=== PATIENT | male | born 1955 ===

== ENCOUNTER 2017-06-07 09:21 | Inpatient (IN) ==
[2017-06-07] MEDS ORDERED: 0.9 % Sodium Chloride 1,000 ML IVC ONE (09:37)
[2017-06-07 09:42] LABS: Bilirubin,Urine Negative (Negative); Blood,Urine Negative (Negative); Clarity,Urine Clear (Clear); Color,Urine Yellow (Yellow); Glucose,Urine (UA) Normal (Normal); Ketones,Urine Negative (Negative); Leukocyte Esterase,Urine Negative (Negative); Nitrite,Urine Negative (Negative); PH,Urine 6.5 pH Units (5.0-8.0); Protein,Urine Negative (Neg-Trace); Specific Gravity,Urine < 1.005 (1.010-1.025); Urobilinogen,Urine Normal (Normal)
[2017-06-07 10:13] LABS: Basophils % 0.7 %; Eosinophils # 0.2 K/mcL (0.0-0.6); Eosinophils % 2.7 %; Hematocrit 30.8 % (37.5-50.1); Hemoglobin 10.2 g/dL (12.9-16.9); Immature Granulocytes % 0.4 % (0-4); Lymphocytes # 1.2 K/mcL (0.6-4.6); Lymphocytes % 21.1 %; Mean Corpuscular HGB Conc 33.1 g/dL (31.6-35.5); Mean Corpuscular Hemoglobin 31.5 pg (28.0-33.3); Mean Corpuscular Volume 95.1 fL (83.0-100.0); Mean Platelet Volume 11.7 fL (9.4-12.4); Monocytes # 0.3 K/mcL (0.0-1.3); Monocytes % 5.1 %; Platelet Count 173 K/mcL (140-400); Red Blood Count 3.24 M/mcL (4.19-5.50); Red Cell Distribution Width 11.8 % (11.5-14.5)
[2017-06-07 10:29] LABS: Calcium 8.9 mg/dL (8.6-10.3); Potassium 4.2 mEq/L (3.5-5.1)
--- NOTE | 2017-06-07 10:50 | Emergency Department Note ---
START Narrative - START START: I examined this patient and my medical decision-making was reviewed with the emergency medicine resident. I agree with the documented findings, disposition and treatment plan as described except to the extent set forth below. Patient seen with emergency medicine resident Dr. Marty Mckeon, Please see a copy of his note for details of the H&P, ED evaluation, management and disposition. I have independently evaluated the patient and confirmed appropriate portions of the history and physical exam. Briefly: 61-year-old male sent in fall of his adeno presents to clinic provider for elevated creatinine 3+. Patient also was hypertensive systolic greater than 220 neurologically nonfocal his acute urinary retention secondary to prostatic hypertrophy. He was placed with 1100 and OF urine obtained peripheral clamping. Patient will get repeat labs EKG urologic consultation and admission. Disposition pending
--- NOTE | 2017-06-07 11:24 | Emergency Department Note ---
Disposition Clinical Impression: Urinary retention Acute renal failure Qualifiers: Acute renal failure type: unspecified Qualified Code(s): N17.9 - Acute kidney failure, unspecified Hydronephrosis Qualifiers: Hydronephrosis type: unspecified Qualified Code(s): N13.30 - Unspecified hydronephrosis Disposition: Admitted As Inpatient Condition: Fair General Adult HPI - General Chief complaint: ED Recheck/Abnormal Lab/Rx Stated complaint: Renal Failure Time Seen by Provider: 06/07/17 09:36 Source: patient Limitations: no limitations Nursing Notes Reviewed: Yes Vital Signs Reviewed: Yes - History of Present Illness HPI Narrative: Patient presents from the residency clinic for evaluation of acute renal failure. Creatinine of 3.0. The patient states history of prostate problems. He did see Dr. Rincon who was concerned about possible urinary retention and ordered a outpatient CT scan. The patient on arrival does have a distended lower abdomen and bedside ultrasound shows a distended bladder that is not able to be fully visualize due to its total distention. Ultrasound of the kidneys show that he has severe hydronephrosis. A Pisano will be placed and basic blood work will be drawn. Patient has not had any other symptoms other than what he describes as difficulty with urination and increased intermittent amounts. Patient states feels like he can incompletely emptying his bladder. No dysuria. No fevers or chills or chest pain or shortness of breath or abdominal pain. Pain Scale: 0 - Related Data Home Medications Medication Instructions Recorded Confirmed Aspirin 325 mg PO DAILY 06/07/17 06/07/17 Chromium Picolinate 1,000 mcg PO DAILY 06/07/17 06/07/17 Fish Oil/Dha/Epa [Fish Oil 1,200 1 cap PO DAILY 06/07/17 06/07/17 mg Fish Oil] Garlic 2,000 mg PO DAILY 06/07/17 06/07/17 Tamsulosin [Flomax] 0.4 mg PO DAILY 06/07/17 06/07/17 Terbinafine HCl [Lamisil] 250 mg PO DAILY 06/07/17 06/07/17 amLODIPine [Norvasc] 5 mg PO DAILY 06/07/17 06/07/17 Allergies Allergy/AdvReac Type Severity Reaction Status Date / Time No Known Allergies Allergy Verified 06/07/17 09:34 Review of Systems: CONSTITUTIONAL: No weight loss, fever, chills, weakness or fatigue. HEENT: Eyes: No visual changes. Ears, Nose, Throat: No hearing loss, difficulty talking or unable to swallow. SKIN: No rash or itching. CARDIOVASCULAR: No chest pain, chest pressure or chest discomfort. No palpitations or edema. RESPIRATORY: No shortness of breath, cough or sputum. GASTROINTESTINAL: Abdominal distention No anorexia, nausea, vomiting or diarrhea. No abdominal pain or blood. GENITOURINARY: Decreased urination NEUROLOGICAL: No headache, dizziness, syncope, paralysis, ataxia, numbness or tingling in the extremities. No change in bowel or bladder control. MUSCULOSKELETAL: No muscle pain, back pain, joint pain or stiffness. Past Medical History - Past Medical History Medical history: Reports: other - Social History Smoking Status: Never smoker Smokeless Tobacco Status: No Alcohol use: Reports: none Drug use: Reports: none Physical Exam General: Well appearing, nontoxic, no acute distress Head: Normocephalic Atraumatic Eyes: PERRL, EOMI ENT: Airway patent, no stridor Neck: supple, no meningismus Chest: Lungs clear to auscultation bilateral Cardiac: Regular rate and rhythm, no murmurs, rubs or gallops Abdomen: soft, nontender, mild lower abdominal distention; no guarding, rebound , or tenderness to percussion Musculoskeletal: Calves symmetric, nontender, no palpable cord Skin: No rash, normal skin tone Neuro: Alert and Oriented to person, place, and time; No focal deficit, CN 2-12 symmetric and intact Bedside ultrasound with significantly distended bladder as well as severe hydronephrosis - General Limitations: no limitations General appearance: alert, in no apparent distress Course - Reevaluation(s) Reevaluation #1: 4 L of urine have been obtained. Patient has had elevated creatinine in the setting of acute urinary retention. Patient fully has been placed. Patient will need admitted for further evaluation. - Consultations Consultation #1: Discussed with urology, Dr. Almonte. He will be happy to consult on the patient. Leave the Pisano in place. No other recommendations at this time. Consultation #2: Discussed with Dr. Mora. Concern for high blood pressure causing underlying kidney disease as well. Requests 20 mg of hydralazine. At this time will start with 10 mg of hydralazine and re-dose depending on response. Vital Signs Temperature 98.3 F 06/07/17 09:30 Pulse Rate 76 06/07/17 09:30 Respiratory Rate 16 06/07/17 09:30 Blood Pressure 221/122 06/07/17 09:30 O2 Sat by Pulse Oximetry 99 06/07/17 09:30 Temperature 97.9 F 06/07/17 15:49 Pulse Rate 85 06/07/17 15:49 Respiratory Rate 14 06/07/17 15:49 Blood Pressure 155/73 06/07/17 15:49 O2 Sat by Pulse Oximetry 98 06/07/17 15:49 Oxygen Delivery Oxygen Delivery Room Air Medical Decision Making - Lab Data Result diagrams: 06/07/17 09:58 06/07/17 09:58 Lab Results 06/07/17 06/07/17 06/07/17 Range/Units 09:29 09:38 09:58 WBC 5.6 (4.3-11.1) K/mcL RBC 3.24 L (4.19-5.50) M/mcL Hgb 10.2 L (12.9-16.9) g/dL Hct 30.8 L (37.5-50.1) % MCV 95.1 (83.0-100.0) fL MCH 31.5 (28.0-33.3) pg MCHC 33.1 (31.6-35.5) g/dL RDW 11.8 (11.5-14.5) % Plt Count 173 (140-400) K/mcL MPV 11.7 (9.4-12.4) fL Immature Gran % 0.4 (0-4) % Seg Neutrophils % 70.0 % Lymphocytes % 21.1 % Monocytes % 5.1 % Eosinophils % 2.7 % Basophils % 0.7 % Neutrophils # 4.0 (1.6-8.9) K/mcL Lymphocytes # 1.2 (0.6-4.6) K/mcL Monocytes # 0.3 (0.0-1.3) K/mcL Eosinophils # 0.2 (0.0-0.6) K/mcL Basophils # 0.0 (0.0-0.2) K/mcL Sodium (136-145) mEq/L Potassium (3.5-5.1) mEq/L Chloride (98-107) mEq/L Carbon Dioxide (23-29) mEq/L BUN (8-23) mg/dL Creatinine (0.70-1.30) mg/dL Est GFR ( Amer) (> 60) Est GFR (Non-Af Amer) (> 60) BUN/Creatinine Ratio (6-26) Glucose (70-105) mg/dL Calculated Osmolality (280-300) Uric Acid 5.5 (2.3-7.6) mg/dL Calcium (8.6-10.3) mg/dL Phosphorus 3.9 (2.7-4.5) mg/dL Urine Color Yellow (Yellow) Urine Clarity Clear (Clear) Urine pH 6.5 (5.0-8.0) pH Units Ur Specific [place] < 1.005 L (1.010-1.025) Urine Protein Negative (Neg-Trace) mg/dL Urine Glucose (UA) Normal (Normal) mg/dL Urine Ketones Negative (Negative) mg/dL Urine Blood Negative (Negative) Urine Nitrite Negative (Negative) Urine Bilirubin Negative (Negative) Urine Urobilinogen Normal (Normal) mg/dL Ur Leukocyte Esterase Negative (Negative) Ur Culture Indicated? NO (NO) 06/07/17 Range/Units 09:58 WBC (4.3-11.1) K/mcL RBC (4.19-5.50) M/mcL Hgb (12.9-16.9) g/dL Hct (37.5-50.1) % MCV (83.0-100.0) fL MCH (28.0-33.3) pg MCHC (31.6-35.5) g/dL RDW (11.5-14.5) % Plt Count (140-400) K/mcL MPV (9.4-12.4) fL Immature Gran % (0-4) % Seg Neutrophils % % Lymphocytes % % Monocytes % % Eosinophils % % Basophils % % Neutrophils # (1.6-8.9) K/mcL Lymphocytes # (0.6-4.6) K/mcL Monocytes # (0.0-1.3) K/mcL Eosinophils # (0.0-0.6) K/mcL Basophils # (0.0-0.2) K/mcL Sodium 142 (136-145) mEq/L Potassium 4.2 (3.5-5.1) mEq/L Chloride 109 H (98-107) mEq/L Carbon Dioxide 27 (23-29) mEq/L BUN 38 H (8-23) mg/dL Creatinine 3.04 H (0.70-1.30) mg/dL Est GFR ( Amer) 26 L (> 60) Est GFR (Non-Af Amer) 21 L (> 60) BUN/Creatinine Ratio 13 (6-26) Glucose 97 (70-105) mg/dL Calculated Osmolality 303 H (280-300) Uric Acid (2.3-7.6) mg/dL Calcium 8.9 (8.6-10.3) mg/dL Phosphorus (2.7-4.5) mg/dL Urine Color (Yellow) Urine Clarity (Clear) Urine pH (5.0-8.0) pH Units Ur Specific [place] (1.010-1.025) Urine Protein (Neg-Trace) mg/dL Urine Glucose (UA) (Normal) mg/dL Urine Ketones (Negative) mg/dL Urine Blood (Negative) Urine Nitrite (Negative) Urine Bilirubin (Negative) Urine Urobilinogen (Normal) mg/dL Ur Leukocyte Esterase (Negative) Ur Culture Indicated? (NO)
[2017-06-07] MEDS ORDERED: Naloxone 0.4 MG/ML INJ IVP PRN (11:40)
[2017-06-07] MEDS ORDERED: *HR* HYDROcodone/Acet 5/325 mg TABLET PO PRN (11:40)
[2017-06-07] MEDS ORDERED: Acetaminophen 325 MG TABLET PO PRN (11:40)
[2017-06-07] MEDS ORDERED: amLODIPine 5 MG TABLET PO ONE (11:42)
--- NOTE | 2017-06-07 11:47 | Internal Med History&Physical ---
Date of Encounter: 06/07/17 Time of Encounter: 12:50 Assessment and Plan (1) Hypertensive urgency Current visit: Yes Status: Acute Patient with known hypertension continue medications. Patient states he was just started on Norvasc by his primary care physician yesterday. He has a hypertensive medication. Give 1 dose of IV hydralazine and start the patient on Norvasc 10 mg by mouth daily. (2) GISSELLE (acute kidney injury) Current visit: Yes Status: Acute Suspected acute on chronic kidney injury. Patient has a history of uncontrolled hypertension and may have chronic kidney disease at baseline. Baseline is unknown due to no records here. However, uric acid is normal, phosphate is normal. Patient does have anemia which may be anemia of chronic disease. Obtain urine sodium, obtain renal ultrasound. Avoid nephrotoxins. (3) BPH with urinary obstruction Current visit: Yes Status: Acute Improving with drainage by Pisano catheter. Consults urology before discharge Continue tamsulosin 0.4 mg orally daily. Internal Medicine - H&P: HPI Chief complaint: Urinary incontinence. Admitted From: Home Plans for Post Hospital Care: Home History of present illness: Mr. Villagomez is a 61 year old male with known history of hypertension diagnosed for the past 18 years treated at home by patient with dietary modification, known benign prostatic hyperplasia not on any medications. The patient presented to the emergency room one day ago for complaints of incontinence said to be worse at night, and feeling of abdominal fullness. Blood test done and the patient was discharged home by his primary care physician. RePresented today because he was called in for acute kidney injury on lab work. The patient reports no known history of kidney disease, but reports that he has been having decreased urinary output several months worse in the past 3 months associated with incontinence in the past few days. He complains of occasional headaches and blurry vision which is suspected due to his elevated blood pressures but denies any other symptom. He has no chest, cardiac, neurologic symptoms. On presentation to the emergency room bedside scan showed an elastic bladder and suspected hydronephrosis. Urinary catheter was placed and at my time of review had drained up to 4300 mL of urine. Past Med Surg Social Fam HX - Past Medical History Medical history: hypertension, other (BPH) - Social History Smoking Status: Never smoker Smokeless Tobacco Status: No Alcohol use: none Drug use: none Internal Medicine - H&P: Meds Aspirin 325 mg PO DAILY 06/07/17 [History] Chromium Picolinate 1,000 mcg PO DAILY 06/07/17 [History] Fish Oil/Dha/Epa [Fish Oil 1,200 mg Fish Oil] 1 cap PO DAILY 06/07/17 [History] Garlic 2,000 mg PO DAILY 06/07/17 [History] Tamsulosin [Flomax] 0.4 mg PO DAILY 06/07/17 [History] Terbinafine HCl [Lamisil] 250 mg PO DAILY 06/07/17 [History] amLODIPine [Norvasc] 5 mg PO DAILY 06/07/17 [History] 3 Allergy/AdvReac Type Severity Reaction Status Date / Time No Known Allergies Allergy Verified 06/07/17 09:34 All Systems PM: A 10-system review of systems was performed and is negative for pertinent findings except as documented above in the HPI. - Constitutional Constitutional: no chills, no fever(s), no night sweats - EENT Eyes: no change in vision, no discharge, no pain, no photophobia Ears: no ear discharge, no ear pain, no tinnitus Nose, mouth and throat: no dysphagia, no nasal discharge, no neck pain, no sore throat - Cardiovascular Cardiovascular ROS IM: no chest pain, no diaphoresis, no dyspnea, no lightheadedness, no palpitations, no syncope - Respiratory Respiratory: no cough, no dyspnea, no wheezing, no excessive phlegm production - Gastrointestinal Gastrointestinal: no abdominal pain, no diarrhea, no hematemesis, no hematochezia, no melena, no nausea, no vomiting - Genitourinary Genitourinary ROS male: as per HPI - Musculoskeletal Musculoskeletal ROS IM: no numbness, no tingling - Integumentary Integumentary IM: no rash, no unusual bruising - Neurological Neurological ROS: no confusion, no convulsions, no focal weakness, no numbness, no tingling, no tremor(s) - Hematologic/Lymphatic Hematologic/Lymphatic: no easy bruising - Constitutional Vitals: Temp Pulse Resp BP Pulse Ox 98.3 F 63 20 197/112 100 06/07/17 09:30 06/07/17 11:30 06/07/17 11:30 06/07/17 11:30 06/07/17 11:30 General appearance: Present: A&O X 3, pleasant, no acute distress - Head Head exam: Present: atraumatic, normocephalic - Eye Eye exam: Present: PERRL, conjuntiva pink, sclera anicteric Pupils: Present: PERRL - Neck Neck exam general surgery: Present: supple, trachea midline. Absent: lymphadenopathy - Respiratory Respiratory exam: Present: CTAB. Absent: accessory muscle use, rales, rhonchi, wheezes - Cardiovascular Cardiovascular exam: Present: RRR, +S1, +S2. Absent: diastolic murmur, gallop, rubs, systolic murmur - GI/Abdominal GI/Abdominal exam: Present: normal bowel sounds, soft, no peritoneal signs. Absent: distended, tenderness - Extremities Exam Extremities exam: Present: warm, radial pulses palpable and symmetrical. Absent : calf tenderness, cyanotic, pedal edema - Neurological Exam Neurological exam: Present: alert, CN II-XII intact, oriented X3, no focal deficits. Absent: pronater drift, facial droop, speech deficit - Skin Skin exam: Present: dry, intact Internal Med - H&P Results - Labs CBC & Chem 7: 06/07/17 09:58 06/07/17 09:58 Labs: Short CBC 06/07/17 Range/Units 09:58 WBC 5.6 (4.3-11.1) K/mcL Hgb 10.2 L (12.9-16.9) g/dL Hct 30.8 L (37.5-50.1) % Plt Count 173 (140-400) K/mcL Neutrophils # 4.0 (1.6-8.9) K/mcL BMP 06/07/17 09:58 Sodium 142 Potassium 4.2 Chloride 109 H Carbon Dioxide 27 BUN 38 H Creatinine 3.04 H Glucose 97 Calcium 8.9 Urine 06/07/17 Range/Units 09:29 Urine Color Yellow (Yellow) Urine Clarity Clear (Clear) Urine pH 6.5 (5.0-8.0) pH Units Ur Specific [place] < 1.005 L (1.010-1.025) Urine Protein Negative (Neg-Trace) mg/dL Urine Glucose (UA) Normal (Normal) mg/dL
[2017-06-07 12:08] LABS: Phosphorous 3.9 mg/dL (2.7-4.5); Uric Acid 5.5 mg/dL (2.3-7.6)
--- NOTE | 2017-06-07 13:03 | Urology - Consult Note ---
Date of Encounter: 06/07/17 Time of Encounter: 13:01 - Assessment and Plan (1) Urinary retention Current Visit: Yes Status: Acute Assessment and plan: Patient had a large amount of urine drained from bladder. Recommend to keep catheter in place at this time. some hematuria is expected. will continue to follow (2) GISSELLE (acute kidney injury) Current Visit: Yes Status: Acute Assessment and plan: Patients serum creatinine is elevated. Will continue with daily lab for eval. (3) Hydronephrosis, bilateral Current Visit: Yes Status: Acute Assessment and plan: Patient will need f/u renal us in 2 weeks or sooner if serum creatinine fails to improve. Urology CN:HPI Consult date: 06/07/17 Reason for consult Urology: Other (urinary retention) Requesting physician: Dom Mora History of present illness: Quang is a 61-year-old male who has had abdominal distention for quite some time. Patient was also recently found to have elevated serum creatinine above 3. Patient arrived to the emergency department today where a bladder scan was done which revealed markedly distended bladder as well as marked bilateral hydronephrosis. Patient had a catheter placed which drained 4.3 L of urine. Patient states that he has been having some urinary incontinence at the day as well as night for a few months. Patient has never taken medication for his prostate. No dysuria or gross hematuria. Past Med Surg Social Fam HX - Past Medical History Medical history: other - Social History Smoking Status: Never smoker Smokeless Tobacco Status: No Alcohol use: none Drug use: none Medications and Allergies Aspirin 325 mg PO DAILY 06/07/17 [History] Chromium Picolinate 1,000 mcg PO DAILY 06/07/17 [History] Fish Oil/Dha/Epa [Fish Oil 1,200 mg Fish Oil] 1 cap PO DAILY 06/07/17 [History] Garlic 2,000 mg PO DAILY 06/07/17 [History] Tamsulosin [Flomax] 0.4 mg PO DAILY 06/07/17 [History] Terbinafine HCl [Lamisil] 250 mg PO DAILY 06/07/17 [History] amLODIPine [Norvasc] 5 mg PO DAILY 06/07/17 [History] 3 Allergy/AdvReac Type Severity Reaction Status Date / Time No Known Allergies Allergy Verified 06/07/17 09:34 Review of Systems - Constitutional no chills, no fever(s) - EENT Nose, mouth and throat: no dizziness - Cardiovascular no chest pain - Respiratory no cough - Gastrointestinal abdominal pain - Genitourinary as per HPI - Musculoskeletal no back pain - Integumentary no erythema, no lesions - Neurological no confusion - Psychiatric no anxiety, no confusion - Hematologic/Lymphatic no lymphadenopathy Exam Initial Vital Signs Temp Pulse Resp BP Pulse Ox 98.3 F 76 16 221/122 99 06/07/17 09:30 06/07/17 09:30 06/07/17 09:30 06/07/17 09:30 06/07/17 09:30 - General physical appearance Present: well developed, well nourished - Eyes Present: PERRL. Absent: icteric - Neck Present: no masses, no lymphadenopathy - Respiratory Present: normal respiratory effort - Cardiovascular Cardiovascular exam IM: RRR - Abdomen Abdomen: Present: soft - Genitourinary other (Catheter in place with clear urine in tubing with slight pinkish tint) - Integumentary Present: no rash, no abnormal pigmentation. Absent: lesions - Neurologic Present: normal coordination. Absent: confused Urology Results - Labs 06/07/17 09:58 06/07/17 09:58 Abnormal lab results RBC 3.24 M/mcL (4.19-5.50) L 06/07/17 09:58 Hgb 10.2 g/dL (12.9-16.9) L 06/07/17 09:58 Hct 30.8 % (37.5-50.1) L 06/07/17 09:58 Chloride 109 mEq/L (98-107) H 06/07/17 09:58 BUN 38 mg/dL (8-23) H 06/07/17 09:58 Creatinine 3.04 mg/dL (0.70-1.30) H 06/07/17 09:58 Est GFR ( Amer) 26 (> 60) L 06/07/17 09:58 Est GFR (Non-Af Amer) 21 (> 60) L 06/07/17 09:58 Calculated Osmolality 303 (280-300) H 06/07/17 09:58 Ur Specific [place] < 1.005 (1.010-1.025) L 06/07/17 09:29 All other labs normal. Consult Discharge Plan - Plan Referrals: Asmita,Bor-Reich, DO [Primary Care Provider] -
[2017-06-07] MEDS: *HR* Heparin 5,000 UNIT/ML VIAL SQ SCH ×2 (15:48→21:38)
[2017-06-08 04:53] LABS: Basophils % 0.3 %; Eosinophils # 0.1 K/mcL (0.0-0.6); Eosinophils % 0.8 %; Hematocrit 28.2 % (37.5-50.1); Hemoglobin 9.5 g/dL (12.9-16.9); Immature Granulocytes % 0.3 % (0-4); Lymphocytes # 0.8 K/mcL (0.6-4.6); Lymphocytes % 8.5 %; Mean Corpuscular HGB Conc 33.7 g/dL (31.6-35.5); Mean Corpuscular Hemoglobin 31.7 pg (28.0-33.3); Mean Platelet Volume 12.5 fL (9.4-12.4); Monocytes # 0.4 K/mcL (0.0-1.3); Monocytes % 3.6 %; Neutrophils # 8.6 K/mcL (1.6-8.9); Platelet Count 163 K/mcL (140-400); Red Cell Distribution Width 11.8 % (11.5-14.5); Segmented Neutrophils % 86.5 %
[2017-06-08 05:12] LABS: Calcium 8.3 mg/dL (8.6-10.3); Magnesium 1.7 mg/dL (1.6-2.6); Potassium 3.4 mEq/L (3.5-5.1)
[2017-06-08] MEDS: *HR* Heparin 5,000 UNIT/ML VIAL SQ SCH ×3 (05:46→20:58)
[2017-06-08] MEDS: amLODIPine 5 MG TABLET PO SCH (07:16)
--- NOTE | 2017-06-08 08:18 | Urology Progress Note ---
Date of Encounter: 06/08/17 Time of Encounter: 08:16 - Assessment and Plan (1) Urinary retention Current Visit: Yes Status: Acute Assessment and plan: Patient to continue with catheter at this time. Patient can continue with Flomax at this time. I do have some concern of whether the patient will ever recover bladder function in the future. (2) GISSELLE (acute kidney injury) Current Visit: Yes Status: Acute Assessment and plan: Serum creatinine improving. Continue to watch. (3) Hydronephrosis, bilateral Current Visit: Yes Status: Acute Progress Note Narrative: Patient seen this am. Patient feeling much better. Serum creatinine down to 2.7. Objective Initial Vital Signs Temp Pulse Resp BP Pulse Ox 98.3 F 76 16 221/122 99 06/07/17 09:30 06/07/17 09:30 06/07/17 09:30 06/07/17 09:30 06/07/17 09:30 - General physical appearance Present: well developed - Respiratory Present: normal respiratory effort - Abdomen Present: soft - Genitourinary Present: other (urine slighty pink in tubing. ) - Labs 06/08/17 04:06 06/08/17 04:06 Diabetes panel 06/08/17 Range/Units 04:06 Sodium 135 L (136-145) mEq/L Potassium 3.4 L (3.5-5.1) mEq/L Chloride 101 (98-107) mEq/L Carbon Dioxide 23 (23-29) mEq/L BUN 37 H (8-23) mg/dL Creatinine 2.73 H (0.70-1.30) mg/dL Glucose 159 H (70-105) mg/dL Calcium 8.3 L (8.6-10.3) mg/dL Calcium panel 06/08/17 Range/Units 04:06 Calcium 8.3 L (8.6-10.3) mg/dL Pituitary panel 06/08/17 Range/Units 04:06 Sodium 135 L (136-145) mEq/L Potassium 3.4 L (3.5-5.1) mEq/L Chloride 101 (98-107) mEq/L Carbon Dioxide 23 (23-29) mEq/L BUN 37 H (8-23) mg/dL Creatinine 2.73 H (0.70-1.30) mg/dL Glucose 159 H (70-105) mg/dL Calcium 8.3 L (8.6-10.3) mg/dL Adrenal panel 06/08/17 Range/Units 04:06 Sodium 135 L (136-145) mEq/L Potassium 3.4 L (3.5-5.1) mEq/L Chloride 101 (98-107) mEq/L Carbon Dioxide 23 (23-29) mEq/L BUN 37 H (8-23) mg/dL Creatinine 2.73 H (0.70-1.30) mg/dL Glucose 159 H (70-105) mg/dL Calcium 8.3 L (8.6-10.3) mg/dL Consult Discharge Plan - Plan Referrals: Lay Tian DO [Primary Care Provider] -
[2017-06-08] MEDS ORDERED: TERBINAFINE HCL 250 MG PO SCH (09:00)
--- NOTE | 2017-06-08 20:34 | Internal Med Progress Note ---
Date of Encounter: 06/08/17 Time of Encounter: 20:32 - Assessment and plan (1) BPH with urinary obstruction Current Visit: Yes Status: Acute Assessment and plan: Improving. Continue tobin catheter. Continue flomax. Urology consulted; appreciate input. Follow urology recommendations. (2) Urinary retention Current Visit: Yes Status: Acute Assessment and plan: As per above. (3) Hydronephrosis, bilateral Current Visit: Yes Status: Acute Assessment and plan: As per above. (4) GISSELLE (acute kidney injury) Current Visit: Yes Status: Acute Assessment and plan: Improving. Cr = 2.73. Repeat BMP in AM. (5) Hypertensive urgency Current Visit: Yes Status: Resolved Assessment and plan: Resolved. BP within normal range. Continue home medications. (6) Hypokalemia Current Visit: Yes Status: Acute Assessment and plan: K = 3.4. Give 40 mEq PO once. Recheck BMP in AM. - Time Spent With Patient less than 15 minutes - Subjective Interval history: Patient had no acute events overnight. He states that he feels better today. He has no new complaints. - Constitutional Vitals: Temp Pulse Resp BP Pulse Ox 97.9 F 79 15 148/78 98 06/08/17 14:49 06/08/17 14:49 06/08/17 14:49 06/08/17 14:49 06/08/17 14:49 General appearance: Present: A&O X 3, pleasant, no acute distress - Respiratory Respiratory exam: Present: CTAB. Absent: accessory muscle use, rales, rhonchi, wheezes Additional comments: Normal WOB - Cardiovascular Cardiovascular exam: Present: RRR, +S1, +S2. Absent: diastolic murmur, gallop, rubs, systolic murmur Additional comments: No BLE edema - GI/Abdominal GI/Abdominal exam: Present: normal bowel sounds, soft. Absent: distended, hepatomegaly, mass, splenomegaly, tenderness - Psychiatric Psychiatric exam: Present: normal affect, normal mood. Absent: anxious, depressed - Skin Skin exam: Present: dry, intact, warm. Absent: cyanosis, rash Internal Medicine: Result - Labs CBC & Chem 7: 06/08/17 04:06 06/08/17 04:06 Labs: Short CBC 06/08/17 Range/Units 04:06 WBC 9.9 D (4.3-11.1) K/mcL Hgb 9.5 L (12.9-16.9) g/dL Hct 28.2 L (37.5-50.1) % Plt Count 163 (140-400) K/mcL Neutrophils # 8.6 (1.6-8.9) K/mcL BMP 06/08/17 04:06 Sodium 135 L Potassium 3.4 L Chloride 101 Carbon Dioxide 23 BUN 37 H Creatinine 2.73 H Glucose 159 H Calcium 8.3 L - Impressions Impressions Retroperitoneum Ultrasound 06/07/17 18:30 IMPRESSION: Moderate bilateral hydronephrosis and hydroureter. Markedly thickened and irregular urinary bladder mccarthy. D/ / Lyndon Turner MD / Lyndon Turner MD Interpreting Provider: Lyndon Turner MD Consult Discharge Plan - Plan Referrals: Lay Tian DO [Primary Care Provider] -
[2017-06-09 04:54] LABS: Calcium 8.3 mg/dL (8.6-10.3)
[2017-06-09] MEDS: *HR* Heparin 5,000 UNIT/ML VIAL SQ SCH ×3 (05:19→20:38)
--- NOTE | 2017-06-09 08:39 | Urology Progress Note ---
Date of Encounter: 06/09/17 Time of Encounter: 08:37 - Assessment and Plan (1) Urinary retention Current Visit: Yes Status: Acute Assessment and plan: Status post catheter. Keep catheter in place. Patient are rescheduled on Sunday to see Dr. Owen. Keep the scheduled follow-up. (2) GISSELLE (acute kidney injury) Current Visit: Yes Status: Acute Assessment and plan: Slowly resolving at this time. (3) Hydronephrosis, bilateral Current Visit: Yes Status: Acute Assessment and plan: Moderate hydronephrosis consistent with recent massive urinary retention. We will follow this up as an outpatient with likely repeat renal ultrasound in 2-3 weeks to document resolution. Depending on length of time of urinary retention patient may never completely resolve his hydronephrosis as this could be chronic dilatation. Progress Note Narrative: Patient seen at this time. Patient feeling much better. Patient's serum down to 2.6. Good urine output. Hematuria is resolving. Patient had renal ultrasound done yesterday which showed bilateral moderate hydronephrosis with thickened bladder wall. Objective Initial Vital Signs Temp Pulse Resp BP Pulse Ox 98.3 F 76 16 221/122 99 06/07/17 09:30 06/07/17 09:30 06/07/17 09:30 06/07/17 09:30 06/07/17 09:30 - General physical appearance Present: well developed - Abdomen Present: soft. Absent: tender - Genitourinary Present: normal penis with no external lesions, other (Clear urine in catheter tubing) - Labs 06/08/17 04:06 06/09/17 03:50 Diabetes panel 06/09/17 Range/Units 03:50 Sodium 138 (136-145) mEq/L Potassium 4.0 (3.5-5.1) mEq/L Chloride 108 H (98-107) mEq/L Carbon Dioxide 22 L (23-29) mEq/L BUN 34 H (8-23) mg/dL Creatinine 2.61 H (0.70-1.30) mg/dL Glucose 112 H (70-105) mg/dL Calcium 8.3 L (8.6-10.3) mg/dL Calcium panel 06/09/17 Range/Units 03:50 Calcium 8.3 L (8.6-10.3) mg/dL Pituitary panel 06/09/17 Range/Units 03:50 Sodium 138 (136-145) mEq/L Potassium 4.0 (3.5-5.1) mEq/L Chloride 108 H (98-107) mEq/L Carbon Dioxide 22 L (23-29) mEq/L BUN 34 H (8-23) mg/dL Creatinine 2.61 H (0.70-1.30) mg/dL Glucose 112 H (70-105) mg/dL Calcium 8.3 L (8.6-10.3) mg/dL Adrenal panel 06/09/17 Range/Units 03:50 Sodium 138 (136-145) mEq/L Potassium 4.0 (3.5-5.1) mEq/L Chloride 108 H (98-107) mEq/L Carbon Dioxide 22 L (23-29) mEq/L BUN 34 H (8-23) mg/dL Creatinine 2.61 H (0.70-1.30) mg/dL Glucose 112 H (70-105) mg/dL Calcium 8.3 L (8.6-10.3) mg/dL Consult Discharge Plan - Plan Referrals: Lay Tian DO [Primary Care Provider] -
[2017-06-09] MEDS ORDERED: Aspirin 325 MG TABLET PO SCH (09:00)
[2017-06-09] MEDS: amLODIPine 5 MG TABLET PO SCH (09:03)
[2017-06-09 16:40] LABS: Basophils % 0.5 %; Eosinophils # 0.3 K/mcL (0.0-0.6); Eosinophils % 4.2 %; Hematocrit 28.2 % (37.5-50.1); Hemoglobin 9.5 g/dL (12.9-16.9); Immature Granulocytes % 0.4 % (0-4); Lymphocytes # 1.4 K/mcL (0.6-4.6); Lymphocytes % 19.6 %; Mean Corpuscular HGB Conc 33.7 g/dL (31.6-35.5); Mean Corpuscular Hemoglobin 31.4 pg (28.0-33.3); Mean Corpuscular Volume 93.1 fL (83.0-100.0); Mean Platelet Volume 11.9 fL (9.4-12.4); Monocytes # 0.5 K/mcL (0.0-1.3); Monocytes % 6.5 %; Neutrophils # 5.1 K/mcL (1.6-8.9); Platelet Count 160 K/mcL (140-400); Red Blood Count 3.03 M/mcL (4.19-5.50); Red Cell Distribution Width 11.9 % (11.5-14.5); Segmented Neutrophils % 68.8 %
--- NOTE | 2017-06-09 18:50 | Internal Med Progress Note ---
Date of Encounter: 06/09/17 Time of Encounter: 18:49 - Assessment and plan (1) BPH with urinary obstruction Current Visit: Yes Status: Acute Assessment and plan: Improving. Continue tobin catheter. Continue flomax. Urology consulted; appreciate input. Follow urology recommendations. Keep follow up with outpatient urology as scheduled for Sunday. He had some increased worsening of hematuria following shower today; possibly due to tobin trauma. Repeat CBC with stable H/H. Will hold aspirin again. Recheck CBC in AM. (2) Urinary retention Current Visit: Yes Status: Acute Assessment and plan: As per above. (3) Hydronephrosis, bilateral Current Visit: Yes Status: Acute Assessment and plan: As per above. (4) GISSELLE (acute kidney injury) Current Visit: Yes Status: Acute Assessment and plan: Improving. Cr = 2.61. Continue urologic interventions as per above. Repeat BMP in AM. (5) Hypertensive urgency Current Visit: Yes Status: Resolved Assessment and plan: Resolved. BP within normal range. Continue home medications. (6) Hypokalemia Current Visit: Yes Status: Resolved Assessment and plan: K = 4.0. Resolved. - Time Spent With Patient less than 15 minutes - Subjective Interval history: Patient had no acute events overnight. He states that he feels "good" today. Nursing staff reported some increased redness of urine today after patient took shower. He has no new complaints. - Constitutional Vitals: Temp Pulse Resp BP Pulse Ox 97.8 F 79 18 158/84 97 06/09/17 15:07 06/09/17 15:07 06/09/17 15:07 06/09/17 15:07 06/09/17 15:07 General appearance: Present: A&O X 3, pleasant, no acute distress, answers questions appropriately - Respiratory Respiratory exam: Present: CTAB. Absent: accessory muscle use, rales, rhonchi, wheezes Additional comments: Normal WOB - Cardiovascular Cardiovascular exam: Present: RRR, +S1, +S2. Absent: diastolic murmur, gallop, rubs, systolic murmur Additional comments: No BLE edema - GI/Abdominal GI/Abdominal exam: Present: normal bowel sounds, soft. Absent: distended, hepatomegaly, mass, splenomegaly, tenderness - Psychiatric Psychiatric exam: Present: normal affect, normal mood. Absent: anxious, depressed - Skin Skin exam: Present: dry, intact, warm. Absent: cyanosis, rash Internal Medicine: Result - Labs CBC & Chem 7: 06/09/17 16:12 06/09/17 03:50 Labs: Short CBC 06/09/17 Range/Units 16:12 WBC 7.4 (4.3-11.1) K/mcL Hgb 9.5 L (12.9-16.9) g/dL Hct 28.2 L (37.5-50.1) % Plt Count 160 (140-400) K/mcL Neutrophils # 5.1 (1.6-8.9) K/mcL BMP 06/09/17 03:50 Sodium 138 Potassium 4.0 Chloride 108 H Carbon Dioxide 22 L BUN 34 H Creatinine 2.61 H Glucose 112 H Calcium 8.3 L Consult Discharge Plan - Plan Referrals: Lay Tian DO [Primary Care Provider] -
[2017-06-10] MEDS: *HR* Heparin 5,000 UNIT/ML VIAL SQ SCH ×3 (05:02→23:10)
[2017-06-10 06:52] LABS: Basophils % 0.4 %; Eosinophils # 0.4 K/mcL (0.0-0.6); Eosinophils % 5.9 %; Hematocrit 25.3 % (37.5-50.1); Hemoglobin 8.8 g/dL (12.9-16.9); Immature Granulocytes % 0.3 % (0-4); Lymphocytes # 1.3 K/mcL (0.6-4.6); Lymphocytes % 18.2 %; Mean Corpuscular HGB Conc 34.8 g/dL (31.6-35.5); Mean Corpuscular Hemoglobin 31.7 pg (28.0-33.3); Mean Platelet Volume 12.1 fL (9.4-12.4); Monocytes # 0.5 K/mcL (0.0-1.3); Monocytes % 6.7 %; Neutrophils # 4.8 K/mcL (1.6-8.9); Platelet Count 156 K/mcL (140-400); Red Blood Count 2.78 M/mcL (4.19-5.50); Red Cell Distribution Width 11.7 % (11.5-14.5); Segmented Neutrophils % 68.5 %
[2017-06-10 07:08] LABS: Calcium 8.3 mg/dL (8.6-10.3); Potassium 3.5 mEq/L (3.5-5.1)
[2017-06-10] MEDS: amLODIPine 5 MG TABLET PO SCH (09:13)
[2017-06-10] MEDS ORDERED: 0.9 % Sodium Chloride 2,000 ML ONE (09:59)
--- NOTE | 2017-06-10 10:38 | Urology Progress Note ---
Date of Encounter: 06/10/17 Time of Encounter: 10:36 - Assessment and Plan (1) Urinary retention Current Visit: Yes Status: Acute (2) GISSELLE (acute kidney injury) Current Visit: Yes Status: Acute Assessment and plan: Serum creatinine continues to improve. Continue with catheter drainage (3) Hydronephrosis, bilateral Current Visit: Yes Status: Acute (4) Gross hematuria Current Visit: Yes Status: Acute Assessment and plan: Patient's catheter was removed. Patient was then prepped and draped in normal sterile fashion. I then placed 11 mL's of lidocaine jelly into the patient's penis. 24-Burmese hematuria catheter was placed with significant resistance around the patient's prostate. 30 mL's of saline was placed in the balloon. At this point I then proceeded to manually irrigate a large amount of clots out of the patient's bladder. Patient was then connected to continuous bladder irrigation where the patient's urine remained light pink on very slow drip. Patient will need to continue with continuous bladder irrigation at least overnight. Will reevaluate patient tomorrow Progress Note Narrative: Patient was evaluated this morning. Patient has developed some gross hematuria with clots. Catheter had any irrigated last night. Urine still bloody. Patient serum creatinine continues to improve. His hemoglobin has slowly dropped to 8.8. Objective Initial Vital Signs Temp Pulse Resp BP Pulse Ox 98.3 F 76 16 221/122 99 06/07/17 09:30 06/07/17 09:30 06/07/17 09:30 06/07/17 09:30 06/07/17 09:30 - General physical appearance Present: well developed, well nourished, no distress - Respiratory Present: normal expansion, normal respiratory effort - Abdomen Present: soft. Absent: tender - Genitourinary Present: normal penis with no external lesions, other (Catheter with blood in tubing) - Labs 06/10/17 06:19 06/10/17 06:19 Diabetes panel 06/10/17 Range/Units 06:19 Sodium 132 L (136-145) mEq/L Potassium 3.5 (3.5-5.1) mEq/L Chloride 101 (98-107) mEq/L Carbon Dioxide 22 L (23-29) mEq/L BUN 31 H (8-23) mg/dL Creatinine 2.07 H (0.70-1.30) mg/dL Glucose 108 H (70-105) mg/dL Calcium 8.3 L (8.6-10.3) mg/dL Calcium panel 06/10/17 Range/Units 06:19 Calcium 8.3 L (8.6-10.3) mg/dL Pituitary panel 06/10/17 Range/Units 06:19 Sodium 132 L (136-145) mEq/L Potassium 3.5 (3.5-5.1) mEq/L Chloride 101 (98-107) mEq/L Carbon Dioxide 22 L (23-29) mEq/L BUN 31 H (8-23) mg/dL Creatinine 2.07 H (0.70-1.30) mg/dL Glucose 108 H (70-105) mg/dL Calcium 8.3 L (8.6-10.3) mg/dL Adrenal panel 06/10/17 Range/Units 06:19 Sodium 132 L (136-145) mEq/L Potassium 3.5 (3.5-5.1) mEq/L Chloride 101 (98-107) mEq/L Carbon Dioxide 22 L (23-29) mEq/L BUN 31 H (8-23) mg/dL Creatinine 2.07 H (0.70-1.30) mg/dL Glucose 108 H (70-105) mg/dL Calcium 8.3 L (8.6-10.3) mg/dL Consult Discharge Plan - Plan Referrals: Lay Tian DO [Primary Care Provider] -
--- NOTE | 2017-06-10 18:25 | Internal Med Progress Note ---
Date of Encounter: 06/10/17 Time of Encounter: 18:20 - Assessment and plan (1) BPH with urinary obstruction Current Visit: Yes Status: Acute Assessment and plan: Improving. Urology consulted; appreciate input. Continue tobin catheter; urology switched to larger catheter with continuous irrigation. Continue flomax. Follow urology recommendations. Keep follow up with outpatient urology as scheduled for Sunday. Hgb slightly decreased this AM to 8.8. Continue to hold aspirin again. Consider holding heparin if continues to drop. Recheck CBC in AM. (2) Urinary retention Current Visit: Yes Status: Acute Assessment and plan: As per above. (3) Hydronephrosis, bilateral Current Visit: Yes Status: Acute Assessment and plan: As per above. (4) GISSELLE (acute kidney injury) Current Visit: Yes Status: Acute Assessment and plan: Improving. Cr = 2.07. Continue urologic interventions as per above. Repeat BMP in AM. (5) Hypertensive urgency Current Visit: Yes Status: Resolved Assessment and plan: Resolved. BP within normal range. Continue home medications. (6) Hypokalemia Current Visit: Yes Status: Resolved Assessment and plan: K = 3.5. Resolved. - Time Spent With Patient less than 15 minutes - Subjective Interval history: Patient had no acute events overnight. He states that urology put in larger tobin and is irrigating it continuously. He has no new complaints. - Constitutional Vitals: Temp Pulse Resp BP Pulse Ox 98.0 F 84 15 132/75 97 06/10/17 15:12 06/10/17 15:12 06/10/17 15:12 06/10/17 15:12 06/10/17 15:12 General appearance: Present: A&O X 3, pleasant, no acute distress, answers questions appropriately - Respiratory Respiratory exam: Present: CTAB. Absent: accessory muscle use, rales, rhonchi, wheezes Additional comments: Normal WOB - Cardiovascular Cardiovascular exam: Present: RRR, +S1, +S2. Absent: diastolic murmur, gallop, rubs, systolic murmur Additional comments: No BLE edema - GI/Abdominal GI/Abdominal exam: Present: normal bowel sounds, soft. Absent: distended, hepatomegaly, mass, splenomegaly, tenderness - Psychiatric Psychiatric exam: Present: anxious, depressed. Absent: normal affect, normal mood - Skin Skin exam: Present: dry, intact, warm. Absent: cyanosis, rash Internal Medicine: Result - Labs CBC & Chem 7: 06/10/17 06:19 06/10/17 06:19 Consult Discharge Plan - Plan Referrals: Lay Tian DO [Primary Care Provider] -
[2017-06-11] MEDS: *HR* Heparin 5,000 UNIT/ML VIAL SQ SCH ×3 (06:37→21:25)
--- NOTE | 2017-06-11 07:36 | Urology Progress Note ---
Date of Encounter: 06/11/17 Time of Encounter: 07:34 - Assessment and Plan (1) Urinary retention Current Visit: Yes Status: Acute (2) GISSELLE (acute kidney injury) Current Visit: Yes Status: Acute Assessment and plan: Serum creatinine pending today (3) Hydronephrosis, bilateral Current Visit: Yes Status: Acute (4) Gross hematuria Current Visit: Yes Status: Acute Assessment and plan: This appears to be slowly resolving. Continue slow drip irrigation today. Hopefull discharge tomorrow with catheter in place Progress Note Narrative: Patient seen and evaluated this morning. Patient states that he had one episode of clots which clogged the catheter last night. Urine is freely flowing this morning on slow irrigation Objective Initial Vital Signs Temp Pulse Resp BP Pulse Ox 98.3 F 76 16 221/122 99 06/07/17 09:30 06/07/17 09:30 06/07/17 09:30 06/07/17 09:30 06/07/17 09:30 - General physical appearance Present: well developed, well nourished - Respiratory Present: normal expansion, normal respiratory effort - Abdomen Present: soft. Absent: tender - Genitourinary Present: other (Urine slightly pink in tubing) - Labs 06/10/17 06:19 06/10/17 06:19 Consult Discharge Plan - Plan Referrals: Lay Tian DO [Primary Care Provider] -
[2017-06-11] MEDS: amLODIPine 5 MG TABLET PO SCH (08:05)
[2017-06-11 09:36] LABS: Basophils % 0.4 %; Eosinophils # 0.4 K/mcL (0.0-0.6); Eosinophils % 5.2 %; Hematocrit 28.7 % (37.5-50.1); Immature Granulocytes % 0.3 % (0-4); Lymphocytes # 1.5 K/mcL (0.6-4.6); Lymphocytes % 18.5 %; Mean Corpuscular HGB Conc 34.8 g/dL (31.6-35.5); Mean Corpuscular Hemoglobin 31.7 pg (28.0-33.3); Mean Corpuscular Volume 91.1 fL (83.0-100.0); Mean Platelet Volume 11.9 fL (9.4-12.4); Monocytes # 0.5 K/mcL (0.0-1.3); Monocytes % 6.8 %; Neutrophils # 5.4 K/mcL (1.6-8.9); Platelet Count 195 K/mcL (140-400); Red Blood Count 3.15 M/mcL (4.19-5.50); Red Cell Distribution Width 11.9 % (11.5-14.5); Segmented Neutrophils % 68.8 %
[2017-06-11 09:42] LABS: Potassium 3.8 mEq/L (3.5-5.1)
--- NOTE | 2017-06-11 19:30 | Internal Med Progress Note ---
Date of Encounter: 06/11/17 Time of Encounter: 19:29 - Assessment and plan (1) BPH with urinary obstruction Current Visit: Yes Status: Acute Assessment and plan: Improving. Urology consulted; appreciate input. Continue tobin catheter. Continue flomax. Follow urology recommendations. Plan to discharge home tomorrow with tobin if H/H stable. Keep follow up with outpatient urology as scheduled. Recheck CBC in AM. (2) Urinary retention Current Visit: Yes Status: Acute Assessment and plan: As per above. (3) Hydronephrosis, bilateral Current Visit: Yes Status: Acute Assessment and plan: As per above. (4) GISSELLE (acute kidney injury) Current Visit: Yes Status: Acute Assessment and plan: Improving. Cr = 2.07. Continue urologic interventions as per above. Repeat BMP in AM. (5) Hypertensive urgency Current Visit: Yes Status: Resolved Assessment and plan: Resolved. BP within normal range. Continue home medications. (6) Hypokalemia Current Visit: Yes Status: Resolved Assessment and plan: Resolved. - Time Spent With Patient less than 15 minutes - Subjective Interval history: Patient had no acute events overnight. He states that tobin looks to have less blood. He denies fever or chills. He has no new complaints. - Constitutional Vitals: Temp Pulse Resp BP Pulse Ox 97.6 F 80 15 158/84 97 06/11/17 15:27 06/11/17 15:27 06/11/17 15:27 06/11/17 15:27 06/11/17 15:27 General appearance: Present: A&O X 3, pleasant, no acute distress, answers questions appropriately - Respiratory Respiratory exam: Present: CTAB. Absent: accessory muscle use, rales, rhonchi, wheezes Additional comments: Normal WOB - Cardiovascular Cardiovascular exam: Present: RRR, +S1, +S2. Absent: diastolic murmur, gallop, rubs, systolic murmur Additional comments: No BLE edema - GI/Abdominal GI/Abdominal exam: Present: normal bowel sounds, soft. Absent: distended, hepatomegaly, mass, splenomegaly, tenderness - Psychiatric Psychiatric exam: Present: normal affect, normal mood. Absent: anxious, depressed - Skin Skin exam: Present: dry, intact, warm. Absent: cyanosis, rash Internal Medicine: Result - Labs CBC & Chem 7: 06/11/17 08:43 06/11/17 08:43 Labs: Short CBC 06/11/17 Range/Units 08:43 WBC 7.9 (4.3-11.1) K/mcL Hgb 10.0 L (12.9-16.9) g/dL Hct 28.7 L (37.5-50.1) % Plt Count 195 (140-400) K/mcL Neutrophils # 5.4 (1.6-8.9) K/mcL BMP 06/11/17 08:43 Sodium 135 L Potassium 3.8 Chloride 102 Carbon Dioxide 25 BUN 36 H Creatinine 2.07 H Glucose 100 Calcium 9.0 Consult Discharge Plan - Plan Referrals: Lay Tian DO [Primary Care Provider] -
[2017-06-12] MEDS: *HR* Heparin 5,000 UNIT/ML VIAL SQ SCH ×2 (05:01→13:39)
[2017-06-12 06:45] VITALS: BP 120/73
--- NOTE | 2017-06-12 07:03 | Urology Progress Note ---
Date of Encounter: 06/12/17 Time of Encounter: 07:02 - Assessment and Plan (1) Urinary retention Current Visit: Yes Status: Acute Assessment and plan: keep this catheter in place. appt made for next sunday. ok to carina from urology standpoint. (2) GISSELLE (acute kidney injury) Current Visit: Yes Status: Acute (3) Hydronephrosis, bilateral Current Visit: Yes Status: Acute (4) Gross hematuria Current Visit: Yes Status: Acute Progress Note Narrative: Patient seen. feeling well. no pain. no problems with catheter. Objective Initial Vital Signs Temp Pulse Resp BP Pulse Ox 98.3 F 76 16 221/122 99 06/07/17 09:30 06/07/17 09:30 06/07/17 09:30 06/07/17 09:30 06/07/17 09:30 - General physical appearance Present: well developed, well nourished, no distress - Respiratory Present: normal expansion, normal respiratory effort - Abdomen Present: soft - Genitourinary Present: other (urine clear in tubing. penis normal. ) - Labs 06/11/17 08:43 06/11/17 08:43 Diabetes panel 06/11/17 Range/Units 08:43 Sodium 135 L (136-145) mEq/L Potassium 3.8 (3.5-5.1) mEq/L Chloride 102 (98-107) mEq/L Carbon Dioxide 25 (23-29) mEq/L BUN 36 H (8-23) mg/dL Creatinine 2.07 H (0.70-1.30) mg/dL Glucose 100 (70-105) mg/dL Calcium 9.0 (8.6-10.3) mg/dL Calcium panel 06/11/17 Range/Units 08:43 Calcium 9.0 (8.6-10.3) mg/dL Pituitary panel 06/11/17 Range/Units 08:43 Sodium 135 L (136-145) mEq/L Potassium 3.8 (3.5-5.1) mEq/L Chloride 102 (98-107) mEq/L Carbon Dioxide 25 (23-29) mEq/L BUN 36 H (8-23) mg/dL Creatinine 2.07 H (0.70-1.30) mg/dL Glucose 100 (70-105) mg/dL Calcium 9.0 (8.6-10.3) mg/dL Adrenal panel 06/11/17 Range/Units 08:43 Sodium 135 L (136-145) mEq/L Potassium 3.8 (3.5-5.1) mEq/L Chloride 102 (98-107) mEq/L Carbon Dioxide 25 (23-29) mEq/L BUN 36 H (8-23) mg/dL Creatinine 2.07 H (0.70-1.30) mg/dL Glucose 100 (70-105) mg/dL Calcium 9.0 (8.6-10.3) mg/dL Consult Discharge Plan - Plan Referrals: Lay Tian DO [Primary Care Provider] -
[2017-06-12] MEDS: amLODIPine 5 MG TABLET PO SCH (07:38)
--- NOTE | 2017-06-12 11:00 | Discharge Summary ---
- NOTES TO OUTPATIENT PROVIDER Notes to Outpatient Provider: Amlodipine has been increased to 10mg daily Date of Encounter: 06/12/17 Time of Encounter: 10:58 - Discharge Diagnosis (1) Hypertensive urgency Priority: Primary Status: Resolved (2) GISSELLE (acute kidney injury) Priority: Primary Status: Acute (3) BPH with urinary obstruction Priority: Secondary Status: Chronic (4) Chronic kidney disease Priority: Secondary Status: Chronic Qualifiers: Chronic kidney disease stage: stage 3 (moderate) Qualified Code(s): N18.3 - Chronic kidney disease, stage 3 (moderate) (5) Hydronephrosis, bilateral Priority: Primary Status: Acute Hospital course: Mr. Villagomez is a 61 year old male who was admitted for acute urinary retention following the diagnosis of benign prostatic hyperplasia. Incidentally found to have hypertensive urgency with elevated creatinine suspected acute on chronic kidney injury. Patient is nonhypertensive not taking any medications at home and had resulted to taking garlic supplements for management of his blood pressure. The patient was admitted , urinary catheter placed drained almost 5 L of urine immediately, renal ultrasound showed bilateral hydronephrosis and hydroureter. Urology was consulted and recommends continuation of urinary catheter to outpatient follow-up. The patient was seen and evaluated this morning his renal function has improved , nephrology was following and recommendations were noted. The patient is medically stable to be discharged home on current dose of amlodipine and tamsulosin. Note the patient is anemic and is taking aspirin full dose at home. We will change to start a baby aspirin dose. Follow-up with primary care physician and urologist. Plan of care discussed with patient, verbalized understanding Discharge discussed with: patient, family, nurse - Time Spent with Patient Total time spent providing and/or coordinating discharge services: Greater than 30 minutes - Discharge Medications Prescriptions: Amlodipine Besylate 10 mg PO DAILY #30 tablet Aspirin Enteric Coated [Aspirin EC] 81 mg PO DAILY #30 tablet.dr Chase Medications: Chromium Picolinate 1,000 mcg PO DAILY 06/07/17 [History] Fish Oil/Dha/Epa [Fish Oil 1,200 mg Fish Oil] 1 cap PO DAILY 06/07/17 [History] Garlic 2,000 mg PO DAILY 06/07/17 [History] Tamsulosin [Flomax] 0.4 mg PO DAILY 06/07/17 [History] Amlodipine Besylate 10 mg PO DAILY #30 tablet 06/12/17 [Rx] Aspirin Enteric Coated [Aspirin EC] 81 mg PO DAILY #30 tablet. 06/12/17 [Rx] Allergies/Adverse Reactions: 3 Allergy/AdvReac Type Severity Reaction Status Date / Time No Known Allergies Allergy Verified 06/07/17 09:34 Date of admission: 06/10/17 11:31 Primary care physician: Lay Tian DO Discharging clinician: Dom Mora Anticipated date of discharge: 06/12/17 - Constitutional Vitals: Temp Pulse Resp BP Pulse Ox 98.1 F 76 18 120/73 97 06/12/17 06:44 06/12/17 06:44 06/12/17 06:44 06/12/17 06:44 06/12/17 06:44 General appearance: Present: A&O X 3, pleasant, no acute distress, answers questions appropriately - Head Head exam: Present: atraumatic, normocephalic - Eye Eye exam: Present: PERRL, conjuntiva pink, sclera anicteric Pupils: Present: PERRL - Neck Neck exam general surgery: Present: supple, trachea midline. Absent: lymphadenopathy - Respiratory Respiratory exam: Present: CTAB. Absent: accessory muscle use, rales, rhonchi, wheezes - Cardiovascular Cardiovascular exam: Present: RRR, +S1, +S2. Absent: diastolic murmur, gallop, rubs, systolic murmur - GI/Abdominal GI/Abdominal exam: Present: normal bowel sounds, soft, no peritoneal signs. Absent: distended, tenderness - Extremities Exam Extremities exam: Present: warm, radial pulses palpable and symmetrical. Absent : calf tenderness, cyanotic, pedal edema - Neurological Exam Neurological exam: Present: alert, CN II-XII intact, oriented X3, no focal deficits. Absent: pronater drift, facial droop, speech deficit - Skin Skin exam: Present: dry, intact - Patient Status Disposition: Home, Self-Care Condition: Good Functional capacity at discharge: independent ambulation Overall status at discharge: patient is back to baseline - Discharge Instructions Follow Up With: Golden Hamilton MD [Partnered Physician] - 06/19/17 9:00 am Lay Tian DO [Primary Care Provider] - 06/20/17 1:00 pm Home Rincon MD [Partnered Physician] - 07/05/17 1:35 pm - Diet and Activity Activity: resume usual activities as tolerated Diet: low salt diet
== END 2017-06-12 14:05 | disposition home or self-care (01) | DRG 469 ==
LOC: 3ANU 09:21 → EMEROO 09:21 → 3ANU 13:04 → SUATTDRO 06-10 11:31
PROVIDERS: ADMIT Internal Medicine; ATTEND Internal Medicine